=== PATIENT | male | born 1965 | race Caucasian/White ===

== ENCOUNTER 2021-04-03 13:45 | Emergency (ER) | payer OTHER ==
[2021-04-03] MEDS ORDERED: IPRATROPIUM BROM 0.5MG/2.5ML ONE (14:07)
[2021-04-03] MEDS ORDERED: ALBUTEROL 2.5 MG/3 ML NEB SOL ONE ×2 (14:07→14:56)
[2021-04-03] MEDS ORDERED: METHYLPREDNISOLONE 125 MG INJ ONE (14:07)
[2021-04-03 14:24] LABS: Absolute Lymphocytes (CBC) 4.4 K/uL (0.7-4.9); Basophils % 0.3 % (0-1.3); Hematocrit 48.1 % (39.6-49.0); MPV 8.3 fL (7.6-11.3); RBC Red Blood Cell Count 5.23 M/uL (4.33-5.43)
[2021-04-03 14:42] LABS: Potassium 4.2 mmol/L (3.5-5.1)
--- NOTE | 2021-04-03 14:46 | RAD REPORT ---
EXAM DESCRIPTION: RAD - Chest Single View - 04/03/2021 2:23 pm CLINICAL HISTORY: Cough;Dyspnea TECHNIQUE: AP portable chest image was obtained 04/03/2021 2:23 pm . FINDINGS: Lungs are clear. Heart and vasculature are normal. No measurable pleural effusion and no p neumothorax. No acute bony abnormality seen. No acute aortic findings suspected. IMPRESSION: No acute cardiopulmonary process.
--- NOTE | 2021-04-03 15:50 | EDPHYS ---
Physician Documentation [facility] Name: Lucio Leggett Age: 55 yrs Sex: Male : 1965 Arrival Date: 04/03/2021 Time: 13:46 Bed 14 Private MD: ED Physician David Champagne HPI: 04/03 15:26 This 55 yrs old Male presents to ER via Ambulatory with complaints of COPD kb Exacerbation, Passed Out Prior To Arrival. 15:27 The patient has shortness of breath at rest, and the patient has a history of COPD. kb Onset: The symptoms/episode began/occurred 1 week(s) ago. Duration: The symptoms are intermittent. The patient's shortness of breath is aggravated by exertion, is alleviated by rest. Associated signs and symptoms: Pertinent positives: productive cough, Pertinent negatives: chest pain, non-productive cough, fever. Severity of symptoms: At their worst the symptoms were moderate in the emergency department the symptoms are unchanged. The patient has experienced similar episodes in the past, a few times. The patient has not recently seen a physician. Pt reports he has been having a COPD exacerbation all week that got worse today. States he gets into coughing fits that make him almost pass out and today he did pass out for a couple of seconds. States he has been coughing up a lot of clear mucus. . Historical: - Allergies: 13:51 Sulfa (Sulfonamide Antibiotics); tw2 - Home Meds: 13:51 None [Active]; tw2 - PMHx: 13:51 COPD; tw2 - PSHx: 13:51 cataract, both eyes; tw2 - Immunization history:: Client reports having NOT received the Covid vaccine. - Social history:: Smoking status: Patient reports the use of cigarette tobacco products, smokes one-half pack cigarettes per day. ROS: 15:26 Constitutional: Negative for fever, chills, and weight loss. kb 15:26 Respiratory: Positive for cough, shortness of breath, Negative for dyspnea on exertion, hemoptysis, orthopnea, pleurisy, sputum production, wheezing. 15:26 Neuro: Positive for syncope. 15:26 All other systems are negative. Exam: 15:26 Constitutional: This is a well developed, well nourished patient who is awake, alert, kb and in no acute distress. Head/Face: Normocephalic, atraumatic. ENT: Moist Mucous membranes Cardiovascular: Regular rate and rhythm with a normal S1 and S2. No gallops, murmurs, or rubs. No pulse deficits. Respiratory: Respirations even and unlabored. No increased work of breathing, no retractions or nasal flaring. Skin: Warm, dry with normal turgor. Normal color. MS/ Extremity: Pulses equal, no cyanosis. Neurovascular intact. Full, normal range of motion. Neuro: Awake and alert, GCS 15, oriented to person, place, time, and situation. Moves all extremities. Normal gait. Psych: Awake, alert, with orientation to person, place and time. Behavior, mood, and affect are within normal limits. Vital Signs: 13:53 BP 117 / 79; Pulse 89; Resp 20; Temp 97.7(TE); Pulse Ox 98% on R/A; Weight 127.01 kg tw2 (R); Height 6 ft. 5 in. (195.58 cm); Pain 0/10; 16:19 BP 119 / 82; Pulse 75; Resp 17; Pulse Ox 95% ; Pain 0/10; kd3 13:53 Body Mass Index 33.20 (127.01 kg, 195.58 cm) tw2 MDM: 13:53 Patient medically screened. kb 14:38 Data reviewed: vital signs, nurses notes. Data interpreted: Pulse oximetry: on room air kb is 98 %. Interpretation: normal. 15:48 Counseling: I had a detailed discussion with the patient and/or guardian regarding: the kb historical points, exam findings, and any diagnostic results supporting the discharge/admit diagnosis, lab results, radiology results, the need for outpatient follow up, a family practitioner, to return to the emergency department if symptoms worsen or persist or if there are any questions or concerns that arise at home. ED course: Oxygen sats 97% on room air. Pt states he is ready to go home. . 04/03 13:54 Order name: CBC with Diff kb 04/03 13:54 Order name: Basic Metabolic Panel kb 04/03 13:54 Order name: Chest Single View XRAY; Complete Time: 14:48 kb 04/03 13:54 Order name: CBC with Automated Diff; Complete Time: 14:36 EDMS 04/03 13:54 Order name: Basic Metabolic Panel; Complete Time: 14:48 EDMS 04/03 13:54 Order name: IV Start; Complete Time: 14:14 kb Administered Medications: 14:05 Drug: AtroVENT (ipratropium) Aerosol 0.5 mg Route: Inhalation; bp 14:10 Drug: SOLU-Medrol (methylPrednisoLONE) 125 mg Route: IVP; Site: right antecubital; bp 14:10 Drug: Albuterol 2.5 mg Route: Inhalation; bp 15:00 Drug: Albuterol 2.5 mg Route: Inhalation; kd3 Disposition: 18:01 Co-signature as Attending Physician, David Champagne MD. rn Disposition Summary: 04/03/21 15:49 Discharge Ordered Location: Home kb Condition: Stable kb Diagnosis - COPD/ Chronic obstructive pulmonary disease with (acute) exacerbation kb Followup: kb - With: Emergency Department - When: As needed - Reason: Worsening of condition Followup: kb - With: Private Physician - When: 2 - 3 days - Reason: Recheck today's complaints, Continuance of care, Re-evaluation by your physician Discharge Instructions: - Chronic Obstructive Pulmonary Disease Exacerbation kb - Discharge Summary Sheet tw2 Forms: - Medication Reconciliation Form kb - Work release form tw2 - Thank You Letter kb - Antibiotic Education kb - Prescription Opioid Use kb Prescriptions: - albuterol sulfate 90 mcg/actuation Inhalation HFA aerosol inhaler - inhale 2 puff by INHALATION route every 4-6 hours As needed; 1 Inhaler; kb Refills: 0, Product Selection Permitted - Prednisone 20 mg Oral Tablet - take 1 tablet by ORAL route once daily for 5 days; 5 tablet; Refills: 0, kb Product Selection Permitted - Albuterol Sulfate 2.5 mg /3 mL (0.083 %) Inhalation Solution for Nebulization - inhale 1 unit by NEBULIZATION route every 8 hours As needed; 1 box; Refills: 0, kb Product Selection Permitted Signatures: Dispatcher [employer] EDMS Sunita Reyes, BORDEREAU CLERK-C BORDEREAU CLERK-David Barger MD MD rn Wise, Tara RN RN tw2 Aneesh Luis, RN RN Jessica Marcus, RN RN kd3 Corrections: (The following items were deleted from the chart) 15:14 14:39 Knee Right 3 View+RAD.[email or web address].[email or web address] ordered. EDHI EDMS
--- NOTE | 2021-04-03 15:50 | ER ---
Nurse's Notes [facility] Name: Lucio Leggett Age: 55 yrs Sex: Male : 1965 Arrival Date: 04/03/2021 Time: 13:46 Bed 14 Private MD: Diagnosis: COPD/ Chronic obstructive pulmonary disease with (acute) exacerbation Presentation: 04/03 13:48 Chief complaint: Patient states: i have COPD. the last week and the exacerbations have tw2 been several times a day. yesterday i had a real bad one and a cup full of phlegm. and it just felt like i was drowning in it. this time i started coughing and i saw the blackness coming so i just put my foot on the brake. Ebola Screen: Patient denies travel to an Ebola-affected area in the 21 days before illness onset. Risk Assessment: Do you want to hurt yourself or someone else? Patient reports no desire to harm self or others. Note provider JAGDEEP Russell in triage performing assessment. Onset of symptoms was April 03, 2021. 13:48 Method Of Arrival: Ambulatory tw2 13:48 Acuity: GALINA 3 tw2 13:50 Initial Sepsis Screen: Does the patient meet any 2 criteria? No. Patient's initial tw2 sepsis screen is negative. Does the patient have a suspected source of infection? No. Patient's initial sepsis screen is negative. 13:50 Coronavirus screen: At this time, the client does not indicate any symptoms associated tw2 with coronavirus-19. Triage Assessment: 13:50 General: Appears in no apparent distress. Behavior is calm, cooperative, appropriate tw2 for age. Pain: Denies pain. Respiratory: Reports shortness of breath at rest on exertion cough that is phlegmy Airway is patent Respiratory effort is even, unlabored, Respiratory pattern is tachypnea. Historical: - Allergies: 13:51 Sulfa (Sulfonamide Antibiotics); tw2 - Home Meds: 13:51 None [Active]; tw2 - PMHx: 13:51 COPD; tw2 - PSHx: 13:51 cataract, both eyes; tw2 - Immunization history:: Client reports having NOT received the Covid vaccine. - Social history:: Smoking status: Patient reports the use of cigarette tobacco products, smokes one-half pack cigarettes per day. Screenin:11 Abuse screen: Denies threats or abuse. Nutritional screening: No deficits noted. tw2 Tuberculosis screening: No symptoms or risk factors identified. Fall Risk None identified. Assessment: 14:05 Reassessment: SEE TRIAGE NOTE. bp Vital Signs: 13:53 BP 117 / 79; Pulse 89; Resp 20; Temp 97.7(TE); Pulse Ox 98% on R/A; Weight 127.01 kg tw2 (R); Height 6 ft. 5 in. (195.58 cm); Pain 0/10; 16:19 BP 119 / 82; Pulse 75; Resp 17; Pulse Ox 95% ; Pain 0/10; kd3 13:53 Body Mass Index 33.20 (127.01 kg, 195.58 cm) tw2 ED Course: 13:46 Patient arrived in ED. as 13:46 Sunita Reyes FNP-C is [facility]. kb 13:47 David Champagne MD is Attending Physician. kb 13:49 Triage completed. tw2 13:49 Arm band placed on. tw2 13:54 Placed in gown. Bed in low position. Call light in reach. Pulse ox on. NIBP on. tw2 14:14 Aneesh Luis, RN is Primary Nurse. bp 14:17 Inserted saline lock: 20 gauge in right antecubital area, using aseptic technique. bp Blood collected. 14:21 CBC with Diff Sent. kd3 14:21 Basic Metabolic Panel Sent. kd3 14:21 CBC with Automated Diff Sent. kd3 14:21 Basic Metabolic Panel Sent. kd3 14:23 Chest Single View XRAY In Process Unspecified. EDMS 16:37 No provider procedures requiring assistance completed. IV discontinued. kd3 Administered Medications: 14:05 Drug: AtroVENT (ipratropium) Aerosol 0.5 mg Route: Inhalation; bp 14:10 Drug: SOLU-Medrol (methylPrednisoLONE) 125 mg Route: IVP; Site: right antecubital; bp 14:10 Drug: Albuterol 2.5 mg Route: Inhalation; bp 15:00 Drug: Albuterol 2.5 mg Route: Inhalation; kd3 Outcome: 15:49 Discharge ordered by . kb 16:37 Discharged to home ambulatory. kd3 16:37 Condition: stable 16:37 Discharge instructions given to patient, Instructed on discharge instructions, follow up and referral plans. medication usage, Demonstrated understanding of instructions, follow-up care, medications. 16:38 Patient left the ED. kd3 Signatures: Dispatcher [employer] Sunita Snyder, CARLEE GANNON-Tia Godwin Tara RN RN tw2 Aneesh Luis RN RN Jessica Marcus RN RN kd3 Corrections: (The following items were deleted from the chart) 13:50 13:48 Chief complaint: Patient states: i have COPD. the last week and the exacerbations tw2 have been several times a day. yesterday i had a real bad one and a cup full of phlegm. and it just felt like i was drowning in it. tw2
[2021-04-03 17:48] VITALS: TEMP 97.7
[2021-04-03 17:49] VITALS: BP 119/82; O2SAT 95
== END 2021-04-03 16:38 | disposition home or self-care (01) ==
LOC: ER 13:45
DX: J44.1 Chronic obstructive pulmonary disease with (acute) exacerbation (principal); F17.210 Nicotine dependence, cigarettes, uncomplicated; Z88.2 Allergy status to sulfonamides
CPT/HCPCS: 85025; 80048; 36415; 71045; 96374; 99284; J2930

== ENCOUNTER 2021-09-02 09:52 | Emergency (ER) | payer OTHER ==
--- OUTSIDE RECORDS SUMMARY | 2021-09-02 09:56 | XMS REPORT | Continuity of Care Document ---
:1965 Author Organization [facility] t Address [address] [place] [address] Care Team Providers Name Role Phone Violet Champagne Attending Clinician Unavailable Physician, Primary or Family Admitting Clinician Unavailabl e Payers Payer Name Policy Type Policy Number Effective Date Expiration Date S ource Problems This patient has no known problems. Allergies, Adverse Reactions, Alerts Allergy Allergy Status Severity Reaction(s) Onset Inactive Treating Comm ents Source Name Type Date Date Clinician Sulfa DA Active PR RASH,ANGIO [facility] (Sulfona 3-30 Clear mide 00:00[facility] Sulfa DA Active PR UNKNOWN 2015-05 [facility] (Sulfona 2-14 Clear mide 00:00: [facility] Medications This patient has no known medications. Procedures This patient has no known procedures. Encounters Start End Encounter Admission Attending Care Care Encounter Source Date/Time Date/Time Type Type Clinicians Facility Department ID 2021-08-14 2021-08-14 Emergency EM DEE Champagne AERS [id number] [facility] 14:30:00 15:01:00 Sai [id number] [facility] 2021-08-14 2021-08-14 Emergency EM Ihsan, DEE HCACL [id number] [facility] 14:30:00 14:30:00 Sai 39 [facility] Results This patient has no known results.
[2021-09-02 10:36] LABS: Absolute Lymphocytes (CBC) 2.7 K/uL (0.7-4.9); Hematocrit 50.2 % (39.6-49.0); MPV 8.6 fL (7.6-11.3); RBC Red Blood Cell Count 5.49 M/uL (4.33-5.43)
[2021-09-02 10:44] LABS: Potassium 4.4 mmol/L (3.5-5.1)
--- NOTE | 2021-09-02 10:48 | RAD REPORT ---
EXAM DESCRIPTION: CT - Head Brain Wo Cont - 09/02/2021 10:24 am CLINICAL HISTORY: Right facial numbness COMPARISON: None. TECHNIQUE: Computed axial tomography of the head was obtained. IV contrast was not requested. All CT scans are performed using dose optimization technique as appropriate and may include automated exposure control or mA/KV adjustment according to patient size. FINDINGS: An intracranial bleed is not seen . The ventricles are normal in caliber. No significant hypodense areas within the brain No extra-axial fluid collection is noted. Fluid within the sinuses/ mastoids is not seen. IMPRESSION: No acute intracranial abnormality is seen. If patient's symptoms persist MRI of the bra in would be recommended.
--- NOTE | 2021-09-02 12:12 | RAD REPORT ---
EXAM DESCRIPTION: Betty Single View09/02/2021 12:05 pm CLINICAL HISTORY: Numbness COMPARISON: 2020 FINDINGS: The lungs appear clear of acute infiltrate. The heart is probably upper limits normal siz e IMPRESSION: No acute abnormalities displayed
--- NOTE | 2021-09-02 12:25 | ER ---
Nurse's Notes [facility] Name: Lucio Leggett Age: 55 yrs Sex: Male : 1965 Arrival Date: 09/02/2021 Time: 09:52 Bed 9 Private MD: Diagnosis: Paresthesia of skin Presentation: 09/02 09:58 Chief complaint: Patient states: R sided facial numbness that has been intermittent for ph about a month, states, " It just happens all of a sudden but today it didn't go away." Also reports R neck and shoulder tingling/numbness, denies weakness or fever. Coronavirus screen: Vaccine status: Patient reports receiving the 1st dose of the Covid vaccine. Ebola Screen: No symptoms or risks identified at this time. No acute neurological deficit is noted. Pre-hospital glucose is not applicable to this patient. Initial Sepsis Screen: Does the patient meet any 2 criteria? No. Patient's initial sepsis screen is negative. Does the patient have a suspected source of infection? No. Patient's initial sepsis screen is negative. Risk Assessment: Do you want to hurt yourself or someone else? Patient reports no desire to harm self or others. Onset of symptoms was September 02, 2021. 09:58 Method Of Arrival: Ambulatory 09:58 Acuity: GALINA 3 ph Triage Assessment: 10:20 The onset of the patients symptoms was more than six hours ago. General: Appears in no ll1 apparent distress. Behavior is calm, cooperative, appropriate for age. Pain: Denies pain. Neuro: Reports paresthesias in face. 19:24 The onset of the patients symptoms was August 02, 2021 at 00:00. ll1 Stroke Activation: Symptom onset > 6 hours Physician: Stroke Attending; Name: ; Notified At: ; Arrived At: Physician: Chief Stroke Resident; Name: ; Notified At: ; Arrived At: Physician: Stroke Resident; Name: ; Notified At: ; Arrived At: Physician: ED Attending; Name: ; Notified At: ; Arrived At: Physician: ED Resident; Name: ; Notified At: ; Arrived At: Historical: - Allergies: 10:16 Sulfa (Sulfonamide Antibiotics); ph - PMHx: 10:16 COPD; ph - PSHx: 10:16 cataract, both eyes; ph - Immunization history:: Adult Immunizations up to date. - Social history:: Smoking status: Patient denies any tobacco usage or history of. Screenin:40 Abuse screen: Denies threats or abuse. Nutritional screening: No deficits noted. ll1 Tuberculosis screening: No symptoms or risk factors identified. Fall Risk Total Moreno Fall Scale indicates No Risk (0-24 pts). Assessment: 11:20 VAN Scoring: Arm Drift: Patients demonstrates NO arm weakness. Patient is VAN Negative. ll1 Aphasia: No aphasia noted. Patient has been NPO before screening. The patient is alert, and able to follow commands. The patient does not exhibit slurred or garbled speech. The patient is not exhibiting difficulty speaking. The patient does not exhibit difficulty understanding words. The patient is able to swallow own secretions with no drooling or need for suction. Patient tolerated one teaspoon of water. No drooling, immediate coughing, gurgling, or clearing of the throat was noted. The patient tolerated 90mL of water. No drooling, immediate coughing, gurgling, or clearing of the throat was noted. The patient passed the bedside swallow screening. Oral medications may be given as ordered. Contact Physician for further diet orders. 12:20 T-PA (Activase) Screening: Indications: Treatment will start within 4.5 hours onset of ll1 symptoms: No. 19:25 Provider notified of bedside swallow screening results: Jean Marie Dozier DO. ll1 Vital Signs: 09:58 BP 119 / 88; Pulse 93; Resp 18; Temp 98.9(TE); Pulse Ox 98% on R/A; ph 12:40 BP 127 / 87; Pulse 78; Resp 17; Pulse Ox 98% on R/A; ll1 NIH Stroke Scale Scores: 10:04 NIHSS Score: 0 ms3 11:20 NIHSS Score: 0 ll1 ED Course: 09:52 Patient arrived in ED. mr 09:53 Jean Marie Dozier DO is Attending Physician. ms3 10:03 Anna Juárez, NAILA is Primary Nurse. ll1 10:03 Arm band placed on Patient placed in an exam room, on a stretcher. ll1 10:16 Triage completed. ph 10:23 Placed in gown. Bed in low position. Call light in reach. Side rails up X 1. Door mb7 closed. Noise minimized. Warm blanket given. 10:23 Basic Metabolic Panel Sent. mb7 10:23 CBC with Diff Sent. mb7 10:23 EKG done, by ED staff, reviewed by Jean Marie Dozier DO. Inserted saline lock: 20 gauge in mb7 right antecubital area, using aseptic technique. Blood collected. 10:25 CT Head Brain wo Cont In Process Unspecified. EDMS 12:07 CXR XRAY In Process Unspecified. EDMS 12:23 Pal Weinstein MD is Referral Physician. ms3 12:43 No provider procedures requiring assistance completed. IV discontinued, intact, ll1 bleeding controlled, No redness/swelling at site. Pressure dressing applied. Administered Medications: No medications were administered Point of Care Testin:24 n/a ll1 Ranges: Outcome: 12:23 Discharge ordered by . ms3 12:43 Patient left the ED. ll1 12:43 Discharged to home ambulatory. ll1 12:43 Condition: stable 12:43 Discharge instructions given to patient, Instructed on discharge instructions, follow up and referral plans. Demonstrated understanding of instructions, follow-up care. NIH Stroke Scale - NIH Stroke Score Date: 09/02/2021 Time: 10:04 Total Score = 0 1a. Level of Consciousness (LOC) - 0(Alert) 1b. Level of Consciousness (LOC) (Month \\T\\ Age) - 0(Both) 1c. LOC Commands (Open \\T\\ Closes Eyes/Employee Representative) - 0(Both) 2. Best Gaze (Lateral Gaze Paresis) - 0(Normal) 3. Visual Field Loss - 0(No visual loss) 4. Facial Palsy - 0(Normal) 5a. Left Arm: Motor (10-second hold) - 0(No drift) 5b. Right Arm: Motor (10-second hold) - 0(No drift) 6a. Left Leg: Motor (5-second hold - always test supine) - 0(No drift) 6b. Right Leg: Motor (5-second hold - always test supine) - 0(No drift) 7. Limb Ataxia (finger/nose \\T\\ heel/garcia - test with eyes open) - 0(Absent) 8. Sensory Loss (pinprick arms/legs/face) - 0(Normal) 9. Best Language: Aphasia (description/naming/reading) - 0(No aphasia) 10. Dysarthria (speech clarity - read or repeat words) - 0(Normal) 11. Extinction and Inattention (visual/tactile/auditory/spatial/personal) - 0(No abnormality) Initials: ms3 NIH Stroke Scale - NIH Stroke Score Date: 09/02/2021 Time: 11:20 Total Score = 0 1a. Level of Consciousness (LOC) - 0(Alert) 1b. Level of Consciousness (LOC) (Month \\T\\ Age) - 0(Both) 1c. LOC Commands (Open \\T\\ Closes Eyes/Employee Representative) - 0(Both) 2. Best Gaze (Lateral Gaze Paresis) - 0(Normal) 3. Visual Field Loss - 0(No visual loss) 4. Facial Palsy - 0(Normal) 5a. Left Arm: Motor (10-second hold) - 0(No drift) 5b. Right Arm: Motor (10-second hold) - 0(No drift) 6a. Left Leg: Motor (5-second hold - always test supine) - 0(No drift) 6b. Right Leg: Motor (5-second hold - always test supine) - 0(No drift) 7. Limb Ataxia (finger/nose \\T\\ heel/garcia - test with eyes open) - 0(Absent) 8. Sensory Loss (pinprick arms/legs/face) - 0(Normal) 9. Best Language: Aphasia (description/naming/reading) - 0(No aphasia) 10. Dysarthria (speech clarity - read or repeat words) - 0(Normal) 11. Extinction and Inattention (visual/tactile/auditory/spatial/personal) - 0(No abnormality) Initials: ll1 Signatures: Dispatcher [employer] Berenice Harry Patricia, RN RN Anna Manzo RN RN 1 Jean Marie Dozier DO DO ms3 Berenice Kam mb7
--- NOTE | 2021-09-02 12:25 | EDPHYS ---
Physician Documentation [facility] Name: Lucio Leggett Age: 55 yrs Sex: Male : 1965 Arrival Date: 09/02/2021 Time: 09:52 Bed 9 Private MD: ED Physician Jean Marie Dozier HPI: 09/02 10:04 This 55 yrs old Male presents to ER via Unassigned with complaints of Facial Droop, ms3 Numbness Of Face, Slurred Speech. 10:04 The patient presents to the emergency department with paresthesias of the right side of ms3 the face, that is moderate. Onset: The symptoms/episode began/occurred acutely, 1 month(s) ago. Context: occurred at work. Associated signs and symptoms: Pertinent positives: paresthesias. Severity of symptoms: At their worst the symptoms were severe in the emergency department the symptoms are unchanged. 55-year-old male presents for right-sided facial paresthesias that been ongoing for a month and intermittent. Patient states the first time this occurred was 1 month ago, then it occurred 2 weeks after that, and began again at 7 AM. She denies pain at this time. Patient denies alleviating or inciting factors. Patient denies nausea, vomiting, chest pain, shortness of breath, or focal weakness.. Historical: - Allergies: 10:16 Sulfa (Sulfonamide Antibiotics); ph - PMHx: 10:16 COPD; ph - PSHx: 10:16 cataract, both eyes; ph - Immunization history:: Adult Immunizations up to date. - Social history:: Smoking status: Patient denies any tobacco usage or history of. ROS: 10:04 Constitutional: Negative for fever, and chills. Eyes: Negative for injury, pain, ms3 redness, and discharge, Neck: Negative for injury, pain, and swelling, Cardiovascular: Negative for chest pain, and palpitations. Respiratory: Negative for shortness of breath, cough, wheezing, and pleuritic chest pain, Abdomen/GI: Negative for abdominal pain, nausea, vomiting, diarrhea, and constipation, MS/Extremity: Negative for injury and deformity, Skin: Negative for injury, rash, and discoloration. 10:04 Neuro: Positive for Paresthesias. 10:04 All other systems are negative. Exam: 10:04 Constitutional: This is a well developed, well nourished patient who is awake, alert, ms3 and in no acute distress. Head/Face: Normocephalic, atraumatic. Eyes: Pupils equal round and reactive to light, extra-ocular motions intact. Lids and lashes normal. Conjunctiva and sclera are non-icteric and not injected. Periorbital areas with no swelling, redness, or edema. Neck: Trachea midline, no cervical lymphadenopathy. Supple, full range of motion without nuchal rigidity, or vertebral point tenderness. No Meningismus. Chest/axilla: Normal chest wall appearance and motion. Nontender with no deformity. Cardiovascular: Regular rate and rhythm with a normal S1 and S2. No gallops, murmurs, or rubs. Normal PMI, no JVD. No pulse deficits. Respiratory: Lungs have equal breath sounds bilaterally, clear to auscultation and percussion. No rales, rhonchi or wheezes noted. No increased work of breathing, no retractions or nasal flaring. Abdomen/GI: Soft, non-tender, with normal bowel sounds. No distension or tympany. No guarding or rebound. No evidence of tenderness throughout. Skin: Warm, dry with normal turgor. Normal color with no rashes, no lesions, and no evidence of cellulitis. MS/ Extremity: Pulses equal, no cyanosis. Neurovascular intact. Full, normal range of motion. Neuro: Awake and alert, GCS 15, oriented to person, place, time, and situation. Cranial nerves II-XII grossly intact. Motor strength 5/5 in all extremities. Sensory grossly intact. Cerebellar exam normal. Normal gait. Psych: Awake, alert, with orientation to person, place and time. Behavior, mood, and affect are within normal limits. 10:11 ECG was reviewed by the Attending Physician. ms3 Vital Signs: 09:58 BP 119 / 88; Pulse 93; Resp 18; Temp 98.9(TE); Pulse Ox 98% on R/A; ph 12:40 BP 127 / 87; Pulse 78; Resp 17; Pulse Ox 98% on R/A; ll1 NIH Stroke Scale Scores: 10:04 NIHSS Score: 0 ms3 11:20 NIHSS Score: 0 ll1 MDM: 10:03 Patient medically screened. ms3 10:08 Data reviewed:. ms3 09/02 10:12 Order name: Basic Metabolic Panel; Complete Time: 11:21 ms3 09/02 10:12 Order name: CBC with Diff; Complete Time: 11:21 ms3 09/02 10:12 Order name: EKG; Complete Time: 10:12 ms3 09/02 10:12 Order name: CT Head Brain wo Cont; Complete Time: 11:21 ms3 09/02 10:12 Order name: CXR XRAY; Complete Time: 12:17 ms3 09/02 10:40 Order name: Glucose, Ancillary Testing; Complete Time: 11:21 EDMS 09/02 10:12 Order name: Cardiac monitoring; Complete Time: 10:23 ms3 09/02 10:12 Order name: EKG - Nurse/Tech; Complete Time: 10: ms3 09/02 10:12 Order name: IV Saline Lock; Complete Time: 10:26 ms3 09/02 10:12 Order name: Labs collected and sent; Complete Time: 10:25 ms3 09/02 10:12 Order name: NPO; Complete Time: 10: ms3 09/02 10:12 Order name: O2 Per Protocol; Complete Time: 10: ms3 09/02 10:12 Order name: O2 Sat Monitoring; Complete Time: 10: ms3 09/02 10:12 Order name: Stroke Swallow Screen; Complete Time: 19:25 ms3 EC:11 Rate is 77 beats/min. Rhythm is regular. QRS [place] is Normal. Clinical impression: ms3 Normal ECG. Interpreted by me. Reviewed by me. Administered Medications: No medications were administered Point of Care Testin:24 n/a ll1 Ranges: Critical Glucose Levels:Adult <50 mg/dl or >400 mg/dl <40 mg/dl or >180 mg/dl Disposition Summary: 09/02/21 12:23 Discharge Ordered Location: Home ms3 Problem: new ms3 Symptoms: are unchanged ms3 Condition: Stable ms3 Diagnosis - Paresthesia of skin ms3 Followup: ms3 - With: Pal Weinstein MD - When: 1 - 2 days - Reason: Recheck today's complaints Discharge Instructions: - Discharge Summary Sheet ms3 - Paresthesia ms3 Forms: - Medication Reconciliation Form ms3 - Thank You Letter ms3 - Antibiotic Education ms3 - Prescription Opioid Use ms3 NIH Stroke Scale - NIH Stroke Score Date: 09/02/2021 Time: 10:04 Total Score = 0 1a. Level of Consciousness (LOC) - 0(Alert) 1b. Level of Consciousness (LOC) (Month \T\ Age) - 0(Both) 1c. LOC Commands (Open \T\ Closes Eyes/Hiv Nurse) - 0(Both) 2. Best Gaze (Lateral Gaze Paresis) - 0(Normal) 3. Visual Field Loss - 0(No visual loss) 4. Facial Palsy - 0(Normal) 5a. Left Arm: Motor (10-second hold) - 0(No drift) 5b. Right Arm: Motor (10-second hold) - 0(No drift) 6a. Left Leg: Motor (5-second hold - always test supine) - 0(No drift) 6b. Right Leg: Motor (5-second hold - always test supine) - 0(No drift) 7. Limb Ataxia (finger/nose \T\ heel/garcia - test with eyes open) - 0(Absent) 8. Sensory Loss (pinprick arms/legs/face) - 0(Normal) 9. Best Language: Aphasia (description/naming/reading) - 0(No aphasia) 10. Dysarthria (speech clarity - read or repeat words) - 0(Normal) 11. Extinction and Inattention (visual/tactile/auditory/spatial/personal) - 0(No abnormality) Initials: ms3 NIH Stroke Scale - NIH Stroke Score Date: 09/02/2021 Time: 11:20 Total Score = 0 1a. Level of Consciousness (LOC) - 0(Alert) 1b. Level of Consciousness (LOC) (Month \T\ Age) - 0(Both) 1c. LOC Commands (Open \T\ Closes Eyes/Hiv Nurse) - 0(Both) 2. Best Gaze (Lateral Gaze Paresis) - 0(Normal) 3. Visual Field Loss - 0(No visual loss) 4. Facial Palsy - 0(Normal) 5a. Left Arm: Motor (10-second hold) - 0(No drift) 5b. Right Arm: Motor (10-second hold) - 0(No drift) 6a. Left Leg: Motor (5-second hold - always test supine) - 0(No drift) 6b. Right Leg: Motor (5-second hold - always test supine) - 0(No drift) 7. Limb Ataxia (finger/nose \T\ heel/garcia - test with eyes open) - 0(Absent) 8. Sensory Loss (pinprick arms/legs/face) - 0(Normal) 9. Best Language: Aphasia (description/naming/reading) - 0(No aphasia) 10. Dysarthria (speech clarity - read or repeat words) - 0(Normal) 11. Extinction and Inattention (visual/tactile/auditory/spatial/personal) - 0(No abnormality) Initials: ll1 Signatures: Dispatcher [employer] EDAmi Quinonez RN RN Anna Juárez RN RN ll1 Jean Marie Dozier DO DO ms3 Corrections: (The following items were deleted from the chart) 10:26 10:12 Accucheck ordered. ms3 ll1
[2021-09-02 13:03] VITALS: BP 119/88; TEMP 98.9; O2SAT 98
--- NOTE | 2021-09-03 09:00 | EKG ---
Test Date: 2021-09-02 Test Time: 10:11:41 Router Operator Pin: MB MEASUREMENT RESULTS: Intervals: Rate: 77 LA: 168 QRSD: 96 QT: 370 QTc: 418 [place]: P: 64 LA: 168 QRS: 24 T: 38 INTERPRETIVE STATEMENTS: Normal sinus rhythm Normal ECG No previous ECG available for comparison Electronically Signed On 09-03-21 08:58:22 CDT by Fuad Simon
== END 2021-09-02 12:43 | disposition home or self-care (01) ==
LOC: ER 09:52
DX: R20.2 Paresthesia of skin (principal); J44.9 Chronic obstructive pulmonary disease, unspecified; Z88.2 Allergy status to sulfonamides
CPT/HCPCS: 36415; 70450; 71045; 80048; 82947; 85025; 93005; 99284